=== PATIENT | female | born 1980 ===

== ENCOUNTER 2024-06-18 13:30 | Emergency (ER) | payer BC ==
[2024-06-18] MEDS ORDERED: Sodium Chloride 0.9% 10 ML Syringe FLUSH PRN (13:52)
[2024-06-18 13:58] LABS: BASOPHILS ABSOLUTE AUTO 0.06 K/uL (0.00-0.20); BASOPHILS PERCENT AUTO 1.2 % (0.0-2.0); EOSINOPHILS ABSOLUTE AUTO 0.09 K/uL (0.00-0.50); EOSINOPHILS PERCENT AUTO 1.8 % (0.0-5.0); HEMATOCRIT 41.7 % (34.0-46.0); HEMOGLOBIN 14.4 g/dL (11.7-15.5); IMMATURE GRAN ABSOLUTE AUTO 0.03 10^3/uL (0.00-0.04); IMMATURE GRAN PERCENT AUTO 0.6 % (0.0-0.4); LYMPHOCYTES ABSOLUTE AUTO 1.25 K/uL (0.50-3.50); MEAN CORPUSCULAR HGB CONC 34.5 g/dL (31.7-36.0); MEAN CORPUSCULAR VOLUME 98.3 fL (84.0-98.0); MONOCYTES ABSOLUTE AUTO 0.45 K/uL (0.00-1.00); NEUTROPHILS ABSOLUTE AUTO 3.13 K/uL (1.40-7.00); NEUTROPHILS PERCENT AUTO 62.4 % (45.0-80.0); PLATELET COUNT,PLT 308 K/uL (150-350); RED BLOOD CELL COUNT 4.24 M/uL (3.77-5.09); RED CELL DISTRIBUTION WIDTH 12.4 % (11.2-14.1)
[2024-06-18 14:14] LABS: ALANINE AMINOTRANSFERASE,ALT 61 U/L (12-78); ALBUMIN 4.3 g/dL (3.4-5.0); ALKALINE PHOSPHATASE 85 IU/L (46-116); ANION GAP 10.9 meq/L (7-15); ASPARTATE AMNIOTRANSFERASE,AST 37 U/L (15-37); BILIRUBIN TOTAL 0.7 mg/dL (0.2-1.0); BLOOD UREA NITROGEN,BUN 8 mg/dL (7-18); CALCIUM 9.6 mg/dL (8.5-10.1); CARBON DIOXIDE,CO2 26.1 mmol/L (21.0-32.0); CHLORIDE,CL 99 mmol/L (98-107); CREATININE 0.78 mg/dL (0.51-1.17); GLUCOSE RANDOM 115 mg/dL (70-99); MAGNESIUM 1.7 mg/dL (1.8-2.4); POTASSIUM,K 3.6 mmol/L (3.5-5.1); PROTEIN TOTAL,TP 8.1 g/dL (6.4-8.2); SODIUM,NA 136 mmol/L (136-145)
[2024-06-18 14:15] LABS: ESTIMATED GFR 97 mL/min (>=60)
[2024-06-18] MEDS: Aspirin 81 MG Tab.Chew ONE (14:24)
[2024-06-18] MEDS: Aspirin 81 MG Tab.Chew PO ONE (14:26)
[2024-06-18] MEDS: Magnesium Sulf/Wat 2 GM/50 mL 2 GM in Premix Bag 1 BAG IV ONE (14:57)
[2024-06-18] MEDS: cloNIDine 0.1 MG Tab PO ONE ×2 (14:59→16:55)
== END 2024-06-18 17:05 | disposition home or self-care (01) ==
LOC: LL.ED 13:30
DX: I10 Essential (primary) hypertension (principal); Z79.899 Other long term (current) drug therapy; Z91.041 Radiographic dye allergy status
CPT/HCPCS: 36415; 71045; 80053; 83735; 83835; 84484; 85025; 93005; 96365; 96366; 99285-25; A9270-GY; J3475